=== PATIENT | male | born 1995 | race Caucasian/White ===

== ENCOUNTER 2016-07-21 17:28 | Emergency (ER) | payer MEDICAID ==
[~2016-07-21] VITALS: Ht 162.6 cm; Wt 80.0 kg
[2016-07-21 17:36] VITALS: Ht 162.6 cm; Wt 80.0 kg
[2016-07-21] MEDS ORDERED: NPH10OT LEFT EAR (20:15)
--- NOTE | 2016-07-21 20:39 | ERD ---
ER Documentation Chief Complaint Date/Time DATE: 07/21/16 TIME: 20:36 Chief Complaint left ear possible fb HPI 28-year-old male comes in for foreign body sensation in his left ear. He does use Q-tips and thinks that may be cotton. States that he also hears a ringing in that ear. He has had no fevers or chills. He is otherwise completely healthy. ROS All systems reviewed and are negative except as per history of present illness. Medications Home Meds Active Scripts Neomycin/Polymyxin/Hydrocort* (Cortisporin* Otic) 10 Ml Susp, 4 DROP LEFT EAR QID, #1 EA Prov:DAX BAILON DO 07/21/16 Reported Medications [None] No Conflict Check 06/02/09 Allergies Allergies: Coded Allergies: No Known Allergy (Verified Allergy, Mild, 06/02/09) PMhx/Soc Medical and Surgical Hx: pt denies Medical Hx, pt denies Surgical Hx History of Surgery: No Hx Neurological Disorder: No Hx Respiratory Disorders: No Hx Cardiac Disorders: No Hx Miscellaneous Medical Probl: No Hx Alcohol Use: No Hx Substance Use: No Hx Tobacco Use: No Physical Exam Vitals Vital Signs Date Time Temp Pulse Resp B/P Pulse Ox O2 Delivery O2 Flow Rate FiO2 07/21/16 17:36 98.1 58 18 125/58 99 Physical Exam Const: [] No distress ENT: Normal External Ears, Nose and Mouth. Right tympanic murmur within normal limits, left tympanic membrane with appearance of a thin layer of orange and later colored cerumen against a portion of the central lower tympanic membrane. There is also some erythema of the canal with mild inflammation. No perforation of eardrum. The other portion near trauma appears within normal limits with good cone of light. Neck: Full range of motion..~ No meningismus. Procedures/MDM 20-year-old male with layer of cerumen stuck to the eardrum secondary to Q-tip use. Also has some inflammation of the ear canal suggestive of a mild otitis externa. I am going to discharge him with Polytrim drops and instructions for ENT referral. I have given the name of an ENT and also have had registration talking about signing up for [facility]. Told to return the emergency room if he has any other trouble such as loss of hearing or discharge from the ear appear Departure Diagnosis: Primary Impression: Cerumen impaction Additional Impression: Otitis externa Condition: Stable Patient Instructions: Cerumen Impaction, Home Care, Otitis Externa (Child) Referrals: ELOY DANIELS MD Additional Instructions: Call your primary care doctor TOMORROW for an appointment during the next 1 WEEK.Tell the traveling secretary that you were referred from this facility. See the doctor sooner or return here if your condition worsens before your appointment time. DAX BAILON DO Jul 21, 2016 20:38
== END 2016-07-21 21:22 | disposition home or self-care (01) ==
LOC: FTE 17:28
DX: H61.22 Impacted cerumen, left ear (principal); H60.312 Diffuse otitis externa, left ear
CPT/HCPCS: 99283